=== PATIENT | female | born 1980 | race Caucasian/White ===

== ENCOUNTER 2017-05-18 16:20 | Emergency (ER) | payer OTHER, SELFPAY ==
[2017-05-18 16:22] VITALS: BP 152/66; PULSE 61; RESP 16; TEMP 37.1; O2SAT 99; BMI 33.0
--- NOTE | 2017-05-18 16:40 | RAD_ITS ---
STUDY: X-RAY RIGHT FOOT, FIRST DIGIT TOE REASON FOR EXAM: Female, 37 years old. Pain and swelling. TECHNIQUE: 3 view(s) of the toe were obtained. COMPARISON: None. FINDINGS: Markedly shattered comminuted fracture of the distal phalanx with significant displaced and distracted fragments. No other abnormalities. RAD/Toe(s) Min 2 Views IMPRESSION: Markedly fragmented is placed and distracted fractures of the first distal phalanx. Electronically Signed: Richi Rangel MD at 16:53 EDT , Service support ,
--- NOTE | 2017-05-18 17:55 | ED.VISSUMM ---
- ER Visit Summary Date of Service: 05/18/17 Chief Complaint: Right great toe trauma and pain History of Present Illness: The patient is a 37 F who dropped the base of a volleyball pole on her right great toe. This occurred within the last several hours. No prior history. No prior foot surgery or fractures. Denies any other complaints. Physical Examination: Well-appearing female. Vital signs are stable afebrile. HEENT exam unremarkable. Neck nontender. Lungs clear to auscultation bilaterally. Heart regular rate and rhythm. She is moving all 4 extremities. Neurovascular intact. Her right great toe is black and blue and swollen at the distal tip primarily but the entire proximal phalanx to the tip of the toe is black and blue and swollen. There is a small superficial laceration on the top. There is a sub-ungual hematoma. This is tender to palpation. The other toes and the foot are nontender neurovascularly intact with normal cap refill. Able to wiggle her toes. Normal sensation. Test Results: X-ray of the right great toe and other toes shows a comminuted fracture of the distal phalanx. Read by myself and the radiologist. I will go over this film with the patient. Emergency Department Course and Treatment: Postop shoe. Vicodin for pain. Vicodin prescription 20 no refill. Treatment Plan: Keep the wound clean. Antibiotic ointment. Ice and elevate. Motrin and [place] for pain. Follow-up with a catalyst plant supervisor Dr. Larry rodas. Disposition: Discharge Impression: Acute right great toe comminuted fracture secondary to trauma Subungual hematoma This note was generated with [employer] dictation software. It may contain incorrect words, spelling, and punctuation that were not noted in review of the chart prior to signing ED Disposition - Plan for ED Patient: Chief Complaint: Lower Extremity Injury Referrals: Juan Alberto Nguyen MD [Primary Care Provider] -
[2017-05-18] MEDS: HYDROcodone Bitartrate/Apap 5/325 Tablet PO (17:56)
--- NOTE | 2017-05-18 17:58 | ED.DEP ---
ED Disposition - Plan for ED Patient: Disposition: Home or Assisted Living Chief Complaint: Lower Extremity Injury Instructions: ED Fx Toe Closed Prescriptions: Hydrocodone/Acetaminophen [[place] 7.5-325 Tablet] 1 ea PO Q4H PRN PRN #20 tab PRN Reason: Pain Ondansetron [Zofran Odt] 8 mg PO Q8H PRN PRN #20 PRN Reason: Nausea Referrals: Phan Rosa DPM [STAFF PHYSICIAN] - As soon as possible Giovanni Cronin DO [STAFF PHYSICIAN] - As soon as possible Additional Instructions: Keep toe clean. Antibiotic ointment to the wound. Ice and elevate. Motrin and [place] for pain. Postop shoe to walk. Follow-up with either tin can laborer or an orthopedic surgeon.
--- NOTE | 2017-05-18 18:02 | DCINST.ED_ITS ---
ED Disposition - Plan for ED Patient: Disposition: Home or Assisted Living Chief Complaint: Lower Extremity Injury Instructions: ED Fx Toe Closed Prescriptions: Hydrocodone/Acetaminophen [[place] 7.5-325 Tablet] 1 ea PO Q4H PRN PRN #20 tab PRN Reason: Pain Ondansetron [Zofran Odt] 8 mg PO Q8H PRN PRN #20 PRN Reason: Nausea Referrals: Phan Rosa DPM [STAFF PHYSICIAN] - As soon as possible Giovanni Cronin DO [STAFF PHYSICIAN] - As soon as possible Additional Instructions: Keep toe clean. Antibiotic ointment to the wound. Ice and elevate. Motrin and [place] for pain. Postop shoe to walk. Follow-up with either dredge pump operator or an orthopedic surgeon.
[2017-05-18 18:26] VITALS: BP 122/86; PULSE 58; RESP 15; O2SAT 98
== END 2017-05-18 18:26 | disposition home or self-care (01) ==
PROVIDERS: Emergency Provider Emergency Medicine; Family Provider Family Medicine; PCP Family Medicine
DX: S92.421A Displaced fracture of distal phalanx of right great toe, initial encounter for closed fracture (principal); S90.211A Contusion of right great toe with damage to nail, initial encounter; W22.8XXA Striking against or struck by other objects, initial encounter; Y93.9 Activity, unspecified; Y92.9 Unspecified place or not applicable
CPT/HCPCS: 73660; 99283

== ENCOUNTER → 2017-06-04 09:49 | Outpatient (CLI) | payer OTHER, SELFPAY | PROVIDERS: Family Provider Family Medicine; PCP Family Medicine; Visit Provider Podiatrist | DX: S92.919A Unspecified fracture of unspecified toe(s), initial encounter for closed fracture (principal); E55.9 Vitamin D deficiency, unspecified | CPT/HCPCS: 36415; 82306 ==

== ENCOUNTER → 2017-12-14 10:30 | Outpatient (CLI) | payer OTHER, SELFPAY ==
[2017-12-14 11:13] LABS: Erythrocyte Sedimentation Rate 6 mm/hr (0-20)
[2017-12-14 11:15] LABS: Absolute Lymphocyte Count 2.49 X10^3/ul (0.83-4.51); Absolute Neutrophil Count 4.8 X10^3/uL (2.0-7.7); Basophil# 0.03 X10^3/uL; Basophil% 0.4 % (0-1); Eosinophil# 0.15 X10^3/uL; Eosinophils% 1.9 % (0-5); Hematocrit 42.5 % (37-47); Hemoglobin 13.9 g/dl (12.0-15.0); Lymphocyte # 2.49 X10^3/ul (4.0); Lymphocyte % 30.8 % (19-41); Mean Corp Hgb Conc 32.7 g/gl (32-36); Mean Corpuscular Hgb 31.2 pg (27.0-32.0); Mean Corpuscular Volume 95.5 fL (81-99); Mean Platelet Vol. 10.1 fl (6.2-12.0); Monocyte# 0.56 X10^3/uL; Monocyte% 6.9 % (0-10); Neutrophil # 4.84 X10^3/uL (2.7-7.7); Neutrophil % 59.9 % (47-70); POSITIVE COUNT NO; POSITIVE DIFFERENTIAL NO; POSITIVE MORPHOLOGY NO; Platelet Count 331 K/mm3 (150-450); RBC Distribution Width CV 12.7 % (11.6-14.6); RBC Distribution Width SD 43.9 fl (35.1-43.9); Red Blood Count 4.45 M/mm3 (4.2-5.4); White Blood Count 8.1 K/mm3 (4.4-11.0)
[2017-12-14 11:48] LABS: AST(SGOT) 15 U/L (15-37); Alanine Aminotransfer ALT/SGPT 18 U/L (13-56); Albumin, Serum 3.9 g/dL (3.2-5.0); Alkaline Phosphatase 79 U/L (45-117); BUN 10 mg/dL (7-18); Bilirubin, Direct 0.18 mg/dL (0.00-0.30); Creatinine, Serum 0.79 mg/dL (0.55-1.02); EST Glomerular Filtration Rate 87 mL/min (>60); Est Glom Filt Rate - Afr Amer 105 mL/min (>60); Globulin 3.7 g/dL (2.2-4.2); Glucose 83 mg/dL (74-106); Protein, Total 7.6 g/dL (6.4-8.2); Rheumatoid Factor < 10.0 IU/mL (<15); Thyroid Stim Hormone (TSH) 1.78 uIU/mL (0.358-3.74); Uric Acid 4.1 mg/dL (2.6-6.0)
[2017-12-14 11:49] LABS: Vitamin D,25 Hydroxy 39.2 ng/mL (29.95-100.01)
[2017-12-17 14:07] LABS: Anti-Centromere B Ab <0.2 AI (0.0-0.9); Anti-Chromatin <0.2 AI (0.0-0.9); Anti-Jo <0.2 AI (0.0-0.9); Anti-Scleroderma-70 AB <0.2 AI (0.0-0.9); RNP Ab <0.2 AI (0.0-0.9); SJOGREN'S Anti-SS-A test < 0.2 AI (0.0-0.9); SJOGREN'S Anti-SS-B test < 0.2 AI (0.0-0.9); Smith Ab <0.2 AI (0.0-0.9)
[2017-12-17 16:19] LABS: Anti-dsDNA Ab <1 IU/mL (0-9)
[2017-12-20 11:02] LABS: Thyroid Peroxidase AB 10 IU/mL (0-34)
== END ==
PROVIDERS: Family Provider Family Medicine; PCP Family Medicine; Referring Provider Specialist; Visit Provider Specialist
DX: L50.8 Other urticaria (principal)
CPT/HCPCS: 36415; 80076; 82306; 82565; 82947; 83520; 84443; 84520; 84550; 85025; 85652; 86225; 86235; 86376; 86431

== ENCOUNTER → 2020-03-08 09:51 | Outpatient (CLI) | payer OTHER, SELFPAY ==
--- NOTE | 2020-03-08 09:54 | BI_ITS ---
MAMMOGRAPHY - BILATERAL SCREENING REASON FOR EXAM: Female, 40 years old. Routine annual screening examination. PERTINENT HISTORY: Non-contributory. TECHNIQUE: Digital bilateral breast rupesh (3D mammographic acquisition) in the CC and MLO projections. 2-D mediolateral oblique (MLO) and craniocaudad (CC) views of both breasts were obtained. CAD: Full Field Digital Mammography with Computer Added Detection was performed. COMPARISON: None. Baseline examination. FINDINGS: Breast Composition: The breasts are heterogeneously dense, which may obscure small masses. There are no dominant masses or suspicious calcifications. No other significant abnormalities are identified. BI/SCREEN MAMM (CAD) W/RUPESH BILAT IMPRESSION: Negative screening mammogram. Yearly followup mammogram recommended. (A) ASSESSMENT CATEGORY: BIRADS Category 1: Negative. A letter regarding these results will be sent to the patient by the facility within 30 days. Approximately 10% of breast cancers are not detected by mammography. A normal mammogram should not delay biopsy of a clinically suspicious abnormality. [id number] Electronically Signed: Clayton Greenfield, at 12:49 EST , Service support ,
== END ==
PROVIDERS: PCP Family Medicine; Referring Provider Obstetrics & Gynecology; Visit Provider Obstetrics & Gynecology
DX: Z12.31 Encounter for screening mammogram for malignant neoplasm of breast (principal)
CPT/HCPCS: 77063; 77067

== ENCOUNTER 2021-03-07 11:58 | Emergency (ER) | payer OTHER, SELFPAY ==
[2021-03-07 11:59] VITALS: BP 129/84; PULSE 65; RESP 14; TEMP 36.6; O2SAT 100; BMI 29.0
--- NOTE | 2021-03-07 12:29 | RAD_ITS ---
STUDY: X-RAY - LEFT HAND REASON FOR EXAM: Left hand pain, left hand numbness. TECHNIQUE: 3 view(s) of the hand. COMPARISON: None. FINDINGS: Normal radiocarpal articulation. Normal distal radioulnar joint. Normal visualized carpal bones. Normal carpal articulations Normal carpometacarpal articulation of the thumb. Normal second through fifth carpometacarpal joints. Normal metacarpi. Normal metacarpophalangeal joint of the thumb. Normal interphalangeal joint of the thumb. Normal proximal and distal phalanges of the thumb. Normal metacarpophalangeal joints of the second through fifth fingers. Normal proximal and distal interphalangeal joints of the second through fifth fingers. Normal phalanges of the second through fifth fingers. The soft tissue structures are unremarkable. RAD/Hand Min 3 Views IMPRESSION: Unremarkable x-ray examination of the left hand. Electronically Signed: Socrates Gold MD at 14:42 EST Tel , Service support ,
--- NOTE | 2021-03-07 12:40 | RAD_ITS ---
STUDY: X-RAY - CERVICAL SPINE REASON FOR EXAM: Female, 41 years old. FELL ON ICE AND HIT HEAD. LEFT HAND NUMBNESS. HEADACHE AND NECK PAIN. TECHNIQUE: 3 view(s) of the cervical spine were obtained. COMPARISON: None FINDINGS: Normal anterior atlantoaxial articulation. Normal odontoid process. There is straightening of the normal cervical lordosis. Anterior spondylosis with uncovertebral hypertrophy at C5-C6. Slight degenerative retrolisthesis of C5 in relation to C6. No demonstrated fracture or traumatic spondylolisthesis. The soft tissue structures are unremarkable. RAD/Cerv Spine 2 or 3 Views IMPRESSION: No fracture or traumatic spondylolisthesis. Degenerative disc disease and uncovertebral hypertrophy at C5-C6. Electronically Signed: Kenny Macario MD ([place]) at 12:55 EST , Service support ,
--- NOTE | 2021-03-07 15:23 | CT_ITS ---
STUDY: CT BRAIN WITHOUT CONTRAST REASON FOR EXAM: Female, 41 years old. headache RADIATION DOSAGE (If Supplied By Facility): CTDIvol = ( 44.99 ) mGy, DLP = ( 762.36 ) mGycm TECHNIQUE: Transaxial CT imaging of the brain was performed without administration of intravenous contrast material. Individualized dose optimization techniques were used for this CT. COMPARISON: No relevant priors. FINDINGS: Normal soft tissue structures. Normal calvarium. Normal size ventricles and extra-axial spaces for the patient''s age. Normal white matter tracts of the cerebral hemispheres. Normal basal ganglia and thalami. Normal brainstem. Normal cerebellum. There is no intracranial hemorrhage. There are no findings of an acute ischemic infarction. Normal visualized paranasal sinuses. CT/Brain/Head without Contrast IMPRESSION: Normal unenhanced CT scan of the brain. Electronically Signed: Kenny Macario MD ([place]) at 15:36 EST , Service support ,
[2021-03-07] MEDS: Acetaminophen 500 MG Tablet 1000 MG PO (15:44)
--- NOTE | 2021-03-07 15:51 | EX.ED.GENINJ ---
HPI History of Present Illness Chief Complaint: Fall Informant: patient Narrative Narrative: Patient is a 41-year-old female with no significant past medical history presenting with headache and head injury. Patient states she was walking her dog this morning around 10 AM when she slipped on the ice and fell backwards. She hit the back of her head. No loss of consciousness. She is not on any anticoagulation. No associated nausea or vomiting. She notes that she has had intermittent weak feeling left arm and change in sensation of her left thumb and pinky finger. She is also complained of associated neck pain. She came in for evaluation of this. She is intermittently felt dizzy and lightheaded. She does have a severe headache. She not take any medication for symptoms prior to coming in. She is not on any anticoagulation. No bleeding disorders that she is aware of. PFSH PFSH Home Medications hydrocodone-acetaminophen 1 ea PO Q4H PRN PRN #20 tab 05/18/17 [Rx Last Taken Unknown] ondansetron 8 mg PO Q8H PRN PRN #20 05/18/17 [Rx Last Taken Unknown] Allergy/AdvReac Type Severity Reaction Status Date / Time ATB Allergy Other Uncoded 05/18/17 16:24 Social History Smoking Status: Never smoker ROS ROS ED Constitutional Constitutional ED: Denies chills or fever(s) Eyes Eyes: Denies blurry vision or change in vision ENT ENT ED: Denies ear pain or sore throat Cardiovascular Cardiovascular: Denies chest pain Respiratory/Chest Respiratory/Chest: Denies cough or dyspnea Gastrointestinal Gastrointestinal: Denies abdominal pain, nausea or vomiting Musculoskeletal Musculoskeletal: Reports neck pain; Denies arthralgias or myalgias Integumentary Denies rash Neurologic Neurologic: Reports headache(s), paresthesias LUE and weakness Psychiatric Psychiatric: Denies depression Hematologic/Lymphatic Hematologic/Lymphatic: Denies easy bleeding or easy bruising EXAM Physical Exam Const Vital Signs: 03/07/21 11:59 03/07/21 15:46 Temperature 97.8 F Temperature Source Temporal Pulse Rate 65 Respiratory Rate 14 Respiratory Effort Normal Blood Pressure 129/84 H Blood Pressure Mean 99 Pulse Ox 100 Oxygen Delivery Method Room Air Positive well nourished and well developed General Appearance ED: well developed HEENT Reports TM's clear HEENT Narrative: No signs of basilar skull fracture. No rhinorrhea appreciated. No malocclusion. No cephalhematoma appreciated. atraumatic; Negative for tenderness Tympanic Membrane ED: Yes TM's clear Eyes PERRL and EOMs intact bilaterally Neck full ROM Neck Narrative: No midline tenderness, no step-off sign General: Negative for tenderness Chest Wall inspection of chest normal Resp normal respiratory effort and clear to auscultation bilaterally Cardio regular rhythm and no murmurs Cardio Narrative: 2+ bilateral radial pulses Rate: regular rate GI normal to inspection, nondistended, normoactive bowel sounds Neuro oriented x3, CN's II-XII intact bilaterally, moves all extremities, no focal motor deficits and no sensory deficits noted Neuro Narrative: Sensation intact to light touch in all dermatomes of the upper extremities. Patient has 5 out of 5 strength with handgrip, arm flexion extension as well as forearm flexion and extension. Sensorium / Orientation: alert Motor Exam: strength 5/5 throughout Psych mental status grossly normal Skin no rashes or lesions noted and no wounds MDM MDM MDM Narrative Medical decision making narrative: Patient is evaluated for headache and paresthesias after a head injury. She appears nontoxic. She has a normal neurologic exam. I am unable to reproduce any symptoms on my physical exam. Protocol x-ray of the hand and C-spine obtained which do not show any acute fracture. She does have degenerative disc disease and uncovertebral hypertrophy of C5-C6. Patient is informed of these findings. Is possible she has a mild radiculopathy that was exacerbated by her fall that is causing the arm symptoms. CT of the brain does not show any acute intracranial process. Patient is given Tylenol for her headache. She will be counseled on close head injury/concussion care. She is discharged home with return precautions. Radiography Diagnostic Testing: Clinical Impression(s) from Imaging Studies Hand X-Ray 03/07/21 12:29 IMPRESSION: Unremarkable x-ray examination of the left hand. Electronically Signed: Socrates Gold MD at 14:42 EST Tel , Service support , Cervical Spine X-Ray 03/07/21 12:40 IMPRESSION: No fracture or traumatic spondylolisthesis. Degenerative disc disease and uncovertebral hypertrophy at C5-C6. Electronically Signed: Kenny Macario MD ([place]) at 12:55 EST , Service support , Brain CT 03/07/21 15:23 IMPRESSION: Normal unenhanced CT scan of the brain. Electronically Signed: Kenny Macario MD ([place]) at 15:36 EST , Service support , Discharge Plan Triage Chief Complaint: Fall ED Provider: Jossy Terrell Dx/Rx/DC Orders Clinical Impression: Closed head injury, Concussion, Arthritis of neck Instructions: ED Concussion, ED Degenerative Disk Disease, ED Head Injury (Adult), ED Neck Pain Prescriptions: No Action hydrocodone-acetaminophen 1 TABLET tablet 1 ea PO Q4H PRN PRN (Reason: Pain) Qty: 20 RF: 0 ondansetron 8 MG tablet,disintegrating 8 mg PO Q8H PRN PRN (Reason: Nausea) Qty: 20 RF: 0 Primary Care Provider: Juan Alberto Nguyen Referrals: Juan Alberto Nguyen MD [Primary Care Provider] - Activity Restrictions/Additional Instructions: Alternate ibuprofen and Tylenol as needed for headache. Return if you have worsening neurologic symptoms such as weakness, vision changes or severe vomiting. You do have arthritis and a possible bone spur in your neck which could be contributing to your arm symptoms. Disposition Disposition: Home, Self Care Discharge Date/Time: 03/07/21 16:04
== END 2021-03-07 16:04 | disposition home or self-care (01) ==
PROVIDERS: Emergency Provider Emergency Medicine; PCP Family Medicine; Visit Provider Emergency Medicine
DX: S06.0X0A Concussion without loss of consciousness, initial encounter (principal); M19.09 Primary osteoarthritis, other specified site; W00.9XXA Unspecified fall due to ice and snow, initial encounter
CPT/HCPCS: 70450; 72040; 73130; 99283

== ENCOUNTER 2021-03-14 08:06 | Outpatient (CLI) | payer OTHER, SELFPAY ==
--- NOTE | 2021-03-14 08:09 | BI_ITS ---
MAMMOGRAPHY - BILATERAL SCREENING REASON FOR EXAM: Female, 41 years old. Routine annual screening examination. PERTINENT HISTORY: Non-contributory. TECHNIQUE: Digital bilateral breast rupesh (3D mammographic acquisition) in the CC and MLO projections. 2-D mediolateral oblique (MLO) and craniocaudad (CC) views of both breasts were obtained. CAD: Full Field Digital Mammography with Computer Added Detection was performed. COMPARISON: Comparison is made with prior study dated 03/08/2020. FINDINGS: Breast Composition: The breasts are heterogeneously dense, which may obscure small masses. There are no dominant masses or suspicious calcifications. No other significant abnormalities are identified. There has been no significant change since the prior study. BI/SCRN MAMM (CAD)W/RUPESH BILAT IMPRESSION: Stable bilateral screening mammogram. Yearly follow-up mammogram recommended. (A) ASSESSMENT CATEGORY: BIRADS Category 1: Negative. A letter regarding these results will be sent to the patient by the facility within 30 days. Approximately 10% of breast cancers are not detected by mammography. A normal mammogram should not delay biopsy of a clinically suspicious abnormality. [id number] Electronically Signed: Clayton Greenfield MD at 9:34 EST , Service support ,
== END 2021-03-14 23:59 | disposition short-term general hospital (02) ==
LOC: OPBI 08:07
PROVIDERS: PCP Family Medicine; Visit Provider Obstetrics & Gynecology
DX: Z12.31 Encounter for screening mammogram for malignant neoplasm of breast (principal)
CPT/HCPCS: 77063; 77067

== ENCOUNTER → 2022-05-24 | Outpatient (CLI) | payer BC, SELFPAY ==
--- NOTE | 2022-05-24 08:30 | BI_ITS ---
MAMMOGRAPHY - BILATERAL SCREENING REASON FOR EXAM: Female, 42 years old. Routine annual screening examination. PERTINENT HISTORY: Non-contributory. TECHNIQUE: Digital bilateral breast rupesh (3D mammographic acquisition) in the CC and MLO projections. 2-D mediolateral oblique (MLO) and craniocaudad (CC) views of both breasts were obtained. CAD: Full Field Digital Mammography with Computer Added Detection was performed. COMPARISON: Comparison is made with prior study dated March 14, 2021 and March 08, 2020. FINDINGS: Breast Composition: The breasts are heterogeneously dense, which may obscure small masses. There are no dominant masses or suspicious calcifications. No other significant abnormalities are identified. There has been no significant change since the prior study. BI/SCRN MAMM (CAD)W/RUPESH BILAT IMPRESSION: Stable bilateral screening mammogram. Yearly follow-up mammogram recommended. (A) ASSESSMENT CATEGORY: BIRADS Category 1: Negative. A letter regarding these results will be sent to the patient by the facility within 30 days. Approximately 10% of breast cancers are not detected by mammography. A normal mammogram should not delay biopsy of a clinically suspicious abnormality. [id number] Electronically Signed: Clayton Greenfield MD at 9:48 EDT ,
== END | disposition home or self-care (01) ==
LOC: OPBI 08:28
PROVIDERS: PCP Family Medicine; Referring Provider Student in an Organized Health Care Education/Training Program; Visit Provider Student in an Organized Health Care Education/Training Program
DX: Z12.31 Encounter for screening mammogram for malignant neoplasm of breast (principal)
CPT/HCPCS: 77063; 77067

== ENCOUNTER 2023-03-13 10:21 | Emergency (ER) | payer BC, SELFPAY ==
[2023-03-13 10:21] VITALS: BP 124/82; PULSE 64; RESP 13; TEMP 36.7; O2SAT 96
[2023-03-13 10:24] VITALS: BP 162/87; PULSE 64; RESP 14; TEMP 36.8; O2SAT 97; BMI 30.7
--- NOTE | 2023-03-13 10:36 | RAD_ITS ---
EXAM: XR CHEST, 1 VIEW CLINICAL INDICATION: chest pain TECHNIQUE: Frontal view of the chest. COMPARISON: No relevant prior studies available. FINDINGS: LUNGS AND PLEURAL SPACES: Unremarkable. No consolidation or edema. No pneumothorax. No effusion. HEART: Unremarkable. Cardiac silhouette not enlarged. MEDIASTINUM: Central airways and mediastinal contour are unremarkable. BONES/JOINTS: Unremarkable. No acute fracture. SOFT TISSUES: Unremarkable. RAD/Chest 1 View (Portable) IMPRESSION: No radiographic evidence of acute cardiopulmonary disease. Electronically Signed: Km Corral MD at 11:52 EST ,
--- NOTE | 2023-03-13 10:36 | EKG12_ITS ---
Test Reason : CHEST TIGHTNESS Blood Pressure : / mmHG Vent. Rate : 068 BPM Atrial Rate : 068 BPM P-R Int : 144 ms QRS Dur : 088 ms QT Int : 422 ms P-R-T Axes : 066 031 -09 degrees QTc Int : 448 ms Normal sinus rhythm T wave abnormality, consider inferior ischemia Abnormal ECG Confirmed by DARRION MCCURDY, ANÍBAL ([id number]), magazine editor MAICO MARTINEZ ([id number]) on 03/14/2023 9:10:47 AM Referred By: ERIN/MARCEL Confirmed By:ANÍBAL MAIER MD
--- NOTE | 2023-03-13 10:48 | ED.VIS.CHEST ---
HPI History of Present Illness Chief Complaint: Chest Pain Informant: patient Onset/Context/Timing Onset: Weeks Activity at onset: gradual Timing: Intermittent Quality: Positive for Dull and Indigestion Location: Left Parasternal and Left Chest Current Severity: Mild Maximum Severity: Mild Worsened By: - (Lying flat makes it worse and has to take Tums.); Not Worsened By Exertion, Movement of Arm, Movement of Torso, Eating, Palpation, Breathing or Coughing Associated Symptoms: Negative for Nausea, Vomiting, Diaphoresis, Dyspnea, Cough, Fever, Lightheadedness, Acid Reflux or Palpitations Narrative Narrative: Healthy 43-year-old female history of heart murmur and reflux. States since just before has had intermittent chest discomfort primarily left-sided. Not exertional. Patient is a runner she runs 4 to 6 miles at a time and states she has had no exertional chest pain or shortness of breath. No trouble walking or with stairs. No significant family history of cardiac disease. She is never been a smoker. No history of hypertension. No history of DVT or PE. No recent travel, surgery or immobilization. No hemoptysis. No leg pain or swelling. The discomfort is worse supine. If she lays flat she has to take Tums. She is on a reflux medication. Today she was seen at the [facility] had inverted T waves on her EKG and her sent her over for evaluation. Prior Similar Symptoms: Yes Recent Illness/Hospitalization: No CVD Risk Factors: Negative for Hypertension, Diabetes, Hypercholesterolemia, Family History 1' </=55 or Smoking PE Risk Factors: Negative for Recent Travel/Surgery, Recent Immobilization, Prior DVT or PE, Cancer or OCP + Smoking + >/=35 TAD Risk Factors: Negative for Marfan's Syndrome PFSH PFSH Home Medications hydrocodone 7.5 mg-acetaminophen 325 mg tablet 1 ea PO Q4H PRN PRN Pain #20 tabs 05/18/17 [Rx Last Taken Unknown] ondansetron 8 mg disintegrating tablet 8 mg PO Q8H PRN PRN Nausea ##20 05/18/17 [Rx Last Taken Unknown] sucralfate 1 gram tablet (Carafate) 1 g PO BID 15 days #30 tabs 03/13/23 [Rx Last Taken Unknown] Allergy/AdvReac Type Severity Reaction Status Date / Time doxycycline Allergy BODY ON Verified 03/13/23 10:24 FIRE Family History (Updated 03/13/23 @ 10:53 by Pat Villanueva) Aunt Myocardial infarction Uncle Myocardial infarction Social History (Updated 03/13/23 @ 10:52 by Pat Villanueva) household members: spouse Smoking Status: Never smoker ROS ROS ED ROS Narrative Patient with indigestion. No exertional dyspnea. No exertional shortness of breath. Review of Systems ROS Unobtainable: Denies due to encephalopathy Constitutional Constitutional ED: Denies chills or fever(s) Eyes Eyes: Reports none ENT ENT ED: Denies ear pain Cardiovascular Cardiovascular: Reports as per HPI and chest pain; Denies palpitations or racing heartbeat Respiratory/Chest Respiratory/Chest: Denies cough or dyspnea Gastrointestinal Gastrointestinal: Denies abdominal pain, constipation, diarrhea, melena, nausea or vomiting Genitourinary Genitourinary ED: Denies dysuria or hematuria Musculoskeletal Musculoskeletal: Denies arthralgias, back pain or myalgias Integumentary Denies abscess or Abrasions Neurologic Neurologic: Denies headache(s) Psychiatric Psychiatric: Denies anxiety or depression Endocrine Endocrinology: Denies cold intolerance Hematologic/Lymphatic Hematologic/Lymphatic: Denies easy bleeding, easy bruising or lymphadenopathy Allergic/Immunologic Allergic/Immunologic ED: Denies mouth swelling, tongue swelling or urticaria EXAM Physical Exam Narrative Exam Narrative: Well-appearing 43-year-old female. Vital signs stable afebrile. Pulse ox 97% on room air no hypoxia. H EENT exam normal. Neck nontender no lymphadenopathy. Lungs clear to auscultation bilaterally. Heart regular rhythm. Rate about 65. Chest wall nontender. Abdomen soft nontender. Moving all 4 extremities. Equal symmetrical radial pulses. 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 Dorsi and plantarflexion intact. Calves are nontender that edema. Neurologically she is awake and alert. Const Vital Signs: 03/13/23 10:24 03/13/23 10:21 03/13/23 10:52 Temperature 98.2 F 98.1 F Temperature Source Temporal Temporal Pulse Rate 64 64 Respiratory Rate 14 13 Respiratory Effort Normal Non-Labored Blood Pressure 162/87 H 124/82 H Blood Pressure Mean 112 96 Pulse Ox 97 96 Oxygen Delivery Method Room Air Room Air 03/13/23 10:36 Temperature Temperature Source Pulse Rate Respiratory Rate Respiratory Effort Blood Pressure Blood Pressure Mean Pulse Ox Oxygen Delivery Method Room Air Positive well nourished and well developed; Negative for obese, cachectic, contractures or unkempt General Appearance ED: well developed and NAD; Negative for unkempt, cachectic, contractures or pallor Nutritional Appearance: Negative for cachectic or obese HEENT Reports moist mucous membranes; Denies dry mucous membranes normocephalic and atraumatic; Negative for trauma or tenderness Mouth ED: No dry mucous membranes Mouth: No dry mucous membranes Eyes EOMs intact bilaterally General Eye ED: Negative for pale conjunctiva or scleral icterus Neck no lymphadenopathy, supple and no JVD General: Negative for tenderness Chest Wall inspection of chest normal and palpation of chest normal Chest: Negative for tenderness Resp normal respiratory effort and clear to auscultation bilaterally Effort and Inspection: Negative for respiratory distress Auscultation: Negative for rales, rhonchi or wheezes Cardio regular rate, regular rhythm, S1 normal heart sound and S2 normal heart sound Peripheral Pulses: pulses 2+ throughout GI normal to inspection, nondistended, normoactive bowel sounds, soft to palpation, non-tender, non-distended and no masses Auscultation: Negative for hyperactive bowel sounds Palpation: Negative for splenomegaly or mass Back/Spine no CVA tenderness and no thoracic nor lumbar tenderness General Back: Negative for CVA tenderness Cervical Spine: Negative for cervical spine tenderness Extremity normal to inspection General Extremety ED: Negative for edema, pulses abnormal or tenderness General Extremity: Negative for edema or pulses abnormal Neuro oriented x3 and CN's II-XII intact bilaterally Sensorium / Orientation: awake, alert, oriented to person, oriented to place and oriented to time; Negative for confused, lethargic or stuporous Motor Exam: strength 5/5 throughout Psych mental status grossly normal Appearance: Negative for unkempt Attitude: No agitated Mood & Affect: Negative for depressed, anxious or tearful Skin no rashes or lesions noted and no wounds General Skin Exam: Negative for jaundice or pallor Rashes: No rashes noted Trauma: Negative for abrasion or laceration MDM MDM MDM Narrative Medical decision making narrative: 43-year-old female that is a runner and has had no exertional chest pain or dyspnea with running. No DVT or PE history or risk factors. This sounds like reflux she will go through a cardiac workup. She does have inverted T waves on her EKG that are nonspecific finding. Exam is normal. Will undergo a cardiac workup. She will be treated with Protonix and a GI cocktail. My suspicion for this being cardiac is low. Repeat exam patient is doing well she was moved from room on the move room 15 [address] for another patient. Patient is doing well at 12:15 AM. That the Protonix and GI cocktail gave her some relief. We discussed all of her test results. She will be discharged home. She is already on omeprazole at home. She is using Tums. I will also write her for Carafate. She will follow-up with GI or general surgery for possible upper endoscopy if not improving. History & Record Review Discussion w/independent historian: Patient Additional record(s) reviewed:: Prior inpatient record, Prior outpatient record and Prior ED visit Lab Data Attestation: I reviewed the patient's lab results. Lab results narrative: CBC white count 11.2. H&H 14 and 43. Platelets 388. Electrolytes are normal. Gap 4. BUN and creatinine 11 and 0.8. Glucose 103. Troponin is 4. Labs: Laboratory Results - last 24 hr 03/13/23 11:03 WBC 11.2 H RBC 4.65 Hgb 14.7 Hct 43.6 MCV 93.8 MCH 31.6 MCHC 33.7 RDW Std Deviation 44.0 H RDW Coeff of Quang 12.8 Plt Count 388 MPV 9.6 Immature Gran % (Auto) 0.300 Neut % (Auto) 67.5 Lymph % (Auto) 25.2 [place] % (Auto) 5.5 Eos % (Auto) 1.1 Baso % (Auto) 0.4 Absolute Neuts (auto) 7.6 Absolute Lymphs (auto) 2.83 Nucleated RBC % 0 Sodium 138 Potassium 3.8 Chloride 107 Carbon Dioxide 27.0 Anion Gap 4 L BUN 11 Creatinine 0.81 Estim Creat Clear Calc 70.83 Est GFR (MDRD) Af Amer 100 Est GFR (MDRD) Non-Af 82 BUN/Creatinine Ratio 13.6 Glucose 103 Calcium 9.3 Troponin I High Sens 4 Radiography Chest X-Ray - ED: 1 View, Read by ED Physician, Read by Radiologist, Heart, Lungs, Mediastinum, Bony Structures, No Acute Disease and Chronic Changes Diagnostic Testing: Clinical Impression(s) from Imaging Studies Chest X-Ray 03/13/23 10:36 IMPRESSION: No radiographic evidence of acute cardiopulmonary disease. Electronically Signed: Km Corral MD at 11:52 EST , , Portable, single view interpreted by myself and the radiologist shows no acute abnormality. Normal cardiac silhouette. Normal mediastinum. Normal lung almeida. Rhythm Strip Rhythm Strip: Sinus Rhythm Rate: 68 Ectopy: None EKG Initial EKG: Attestation: I personally reviewed and interpreted this EKG as follows: Interpretation: Sinus Rhythm and No Acute Injury Pattern Comments: Sinus rhythm rate of 68. Inverted T waves in lead III and aVF. Prior EKG done today at the [facility] shows the same. No ST elevation. Prior: Unchanged Discharge Plan Triage Chief Complaint: Chest Pain ED Provider: Larry Hwang Dx/Rx/DC Orders Clinical Impression: Gastroesophageal reflux, Chest pain Instructions: ED GERD (Adult) Prescriptions: New sucralfate [Carafate] 1 gram tablet 1 g PO BID 15 Days Qty: 30 0RF No Action hydrocodone-acetaminophen 1 TABLET tablet 1 ea PO Q4H PRN PRN (Reason: Pain) Qty: 20 0RF Rx Instructions: ondansetron 8 MG tablet,disintegrating 8 mg PO Q8H PRN PRN (Reason: Nausea) Qty: 20 0RF Primary Care Provider: Juan Alberto Nguyen Referrals: Arcenio Millan MD [Med Staff - Active Staff] - As soon as possible Juan Alberto Nguyen MD [Primary Care Provider] - As Needed Brendon Salvador DO [Med Staff - Active Staff] - As soon as possible Activity Restrictions/Additional Instructions: Your discomfort is secondary to gastroesophageal reflux. Do not eat at least 3 hours prior to bed time. Elevate the head of your bed. Omeprazole up to 40 mg twice a day for the next week. Tums as needed. You may also use a prescription of Carafate I wrote you for twice a day. Call and follow-up with either GI, Dr. Salvador, or general surgeon Kenny Elias if this is not improving they can consider upper endoscopy. Or you can follow-up with someone from the [facility]. Disposition Disposition: Home, Self Care
[2023-03-13 11:14] LABS: Absolute Lymphocyte Count 2.83 X10^3/uL (0.83-4.51); Absolute Neutrophil Count 7.6 X10^3/uL (2.0-7.7); Basophil# 0.05 X10^3/uL; Basophil% 0.4 % (0-1); Eosinophil# 0.12 X10^3/uL; Eosinophils% 1.1 % (0-5); Hematocrit 43.6 % (37-47); Hemoglobin 14.7 g/dL (12.0-15.0); Lymphocyte # 2.83 X10^3/ul (0.83-4.51); Lymphocyte % 25.2 % (19-41); Mean Corp Hgb Conc 33.7 g/dL (32-36); Mean Corpuscular Hgb 31.6 pg (27.0-32.0); Mean Corpuscular Volume 93.8 fL (81-99); Mean Platelet Vol. 9.6 fl (6.2-12.0); Monocyte# 0.62 X10^3/uL; Monocyte% 5.5 % (0-10); NRBC Flagged by Analyzer 0 % (0-5); Neutrophil # 7.59 X10^3/uL (2.7-7.7); Neutrophil % 67.5 % (47-70); Platelet Count 388 K/mm3 (150-450); RBC Distribution Width CV 12.8 % (11.6-14.6); Red Blood Count 4.65 M/mm3 (4.2-5.4); White Blood Count 11.2 K/mm3 (4.4-11.0)
[2023-03-13] MEDS: Mag Hydrox/Al Hydrox/Simeth 30 ML UDC PO (11:14)
[2023-03-13] MEDS: Pantoprazole Sodium 40 MG Tablet PO (11:14)
[2023-03-13 11:32] LABS: Anion Gap 4 (5-15); BUN 11 mg/dL (7-18); BUN/Creat Ratio 13.6 RATIO (10-20); Calcium,Total 9.3 mg/dL (8.5-10.1); Chloride 107 mmol/L (98-107); Creatinine, Serum 0.81 mg/dL (0.55-1.02); EST Glomerular Filtration Rate 82 mL/min (>60); Est Glom Filt Rate - Afr Amer 100 mL/min (>60); Estimated Creatinine Clearance 70.83 ml/min; Glucose 103 mg/dL (74-106); Potassium 3.8 mmol/L (3.5-5.1); Sodium Level 138 mmol/L (136-145); Troponin-I HS (w/2H Reflex) 4 pg/mL (3.0-54.0)
[2023-03-13 12:34] VITALS: BP 132/67; PULSE 62; RESP 16; O2SAT 97
[2023-03-13 13:06] LABS: Reflex Troponin-HS? (from REC) Y
== END 2023-03-13 12:36 | disposition home or self-care (01) ==
PROVIDERS: Emergency Provider Emergency Medicine; PCP Family Medicine; Visit Provider Emergency Medicine
DX: K21.9 Gastro-esophageal reflux disease without esophagitis (principal); R07.9 Chest pain, unspecified
CPT/HCPCS: 71045; 80048; 84484; 85025; 93005; 99283; A4216